=== PATIENT | female | born 1995 | race African-American/Black ===

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

== ENCOUNTER 2018-03-08 11:35 | Emergency (ER) | payer OTHER ==
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
[2018-03-08 15:00] VITALS: BP 115/67
== END 2018-03-08 14:58 | disposition home or self-care (01) ==
LOC: ED 11:35
DX: T20.46XA Corrosion of unspecified degree of forehead and cheek, initial encounter (principal); Y92.9 Unspecified place or not applicable
CPT/HCPCS: 99281